=== PATIENT | male | born 1955 | race Two or more races ===

== ENCOUNTER 2024-04-21 14:25 | Emergency (ER) | payer MEDICARE ==
[2024-04-21 14:58] VITALS: O2SAT 98
[2024-04-21 15:13] LABS: BASOPHILS % (AUTO) 0.5 %; EOSINOPHILS # (AUTO) 0.1 10^3/uL (0.0-0.7); EOSINOPHILS % (AUTO) 0.7 %; HCT - HEMATOCRIT 40.3 % (42.0-52.0); HGB - HEMOGLOBIN 12.4 g/dL (14.0-18.0); LYMPHOCYTES # (AUTO) 2.5 10^3/uL (1.5-3.5); MEAN CORPUSCULAR HEMOGLOBIN 29.9 pg (27.0-31.0); MEAN CORPUSCULAR HGB CONC 30.8 g/dL (32.0-36.0); MEAN CORPUSCULAR VOLUME 97.1 fL (80.0-94.0); MEAN PLATELET VOLUME 10.2 fL (7.4-11.4); MONOCYTES # (AUTO) 0.6 10^3/uL (0.0-1.0); MONOCYTES % (AUTO) 6.7 %; NEUTROPHILS # (AUTO) 5.2 10^3/uL (1.5-6.6); NEUTROPHILS % (AUTO) 61.9 %; PLT - PLATELET COUNT 160 10^3/uL (130-450); RED BLOOD COUNT 4.15 10^6/uL (4.70-6.10); RED CELL DISTRIBUTION WIDTH 13.3 % (12.0-15.0); WHITE BLOOD COUNT 8.4 x10^3/uL (4.8-10.8)
[2024-04-21 15:27] LABS: ALBUMIN 4.7 g/dL (3.2-5.5); ALBUMIN/GLOBULIN RATIO 1.4 (1.0-2.2); BILIRUBIN,TOTAL 0.6 mg/dL (0.2-1.0); CALCIUM 9.9 mg/dL (8.5-10.3); POTASSIUM 4.6 mmol/L (3.5-4.5)
--- NOTE | 2024-04-21 15:45 | ED Physician Documentation ---
PD HPI ABD PAIN - Stated complaint Stated Complaint: ABD PX - Chief complaint Chief Complaint: Abd Pain - History obtained from History obtained from: Patient - Additional information Additional information: 68-year-old gentleman with diabetes, stage IV CKD with fistula in place although not dialyzed yet and history of gastroparesis. He and his whole family got sick with what they think was food poisoning 2 weeks ago marked by abdominal cramps and vomiting. (Not 21 weeks in contrast to the nurses notes). Since then he has had early satiety with bloating and nausea. He has had a remote cholec ystectomy. PD PAST MEDICAL HISTORY - Past Medical History Past Medical History: Yes Cardiovascular: Congestive heart failure, Hypertension, High cholesterol, Coronary artery disease Respiratory: Asthma, Sleep apnea, CPAP use Neuro: Alzhiemer's, TIA Endocrine/Autoimmune: Type 2 diabetes GI: Other : Benign prostate hypertrophy, Renal insuffiency HEENT: Chronic vision loss, Macular degeneration Psych: None Musculoskeletal: Osteoarthritis, Fibromyalgia, Rheumatoid arthritis Derm: None Other Past Medical History: gastroparesis - Past Surgical History Past Surgical History: Yes General: Cholecystectomy Ortho: Carpal Tunnel surgery Cardiovascular: Coronary stent, Cardiac catheterization HEENT: Cataracts - Present Medications Home Medications: Ambulatory Orders Medication Instructions Recorded Confirmed Azithromycin [Zithromax] 250 mg PO DAILY #4 tablet 12/29/23 Doxycycline Monohydrate 100 mg PO BID #20 cap 12/29/23 Metoclopramide [Reglan] 10 mg PO Q6H PRN #40 tablet 04/21/24 Ondansetron Odt [Zofran] 4 mg TL Q6H PRN #20 tablet 04/21/24 - Allergies Allergies/Adverse Reactions: Allergies Allergy/AdvReac Type Severity Reaction Status Date / Time Penicillins Allergy Anaphylaxis Verified 04/21/24 14:43 - Social History Does the pt smoke?: No Smoking Status: Former smoker Does the pt drink ETOH?: No Does the pt have substance abuse?: Yes Substance Use and Type: Marijuana - Immunizations Immunizations are current?: Yes - POLST Patient has POLST: No PD ED PE NORMAL - Vitals Vital signs reviewed: Yes - General General: Alert and oriented X 3, No acute distress - Abdomen Abdomen: Soft, Non tender, Other (No free fluid on bedside ultrasound) - Extremities Extremities: No edema, No calf tenderness / cord - Neuro Neuro: Alert and oriented X 3 Results - Vitals Vitals: Vital Signs - 24 hr 04/21/24 14:44 Temperature 36.5 C Heart Rate 58 L Respiratory 18 Rate Blood Pressure 144/40 H O2 Saturation 98 Oxygen O2 Source Room air - Labs Labs: Laboratory Tests 04/21/24 04/21/24 15:05 15:05 WBC 8.4 RBC 4.15 L Hgb 12.4 L Hct 40.3 L MCV 97.1 H MCH 29.9 MCHC 30.8 L RDW 13.3 Plt Count 160 MPV 10.2 Neut # (Auto) 5.2 Lymph # (Auto) 2.5 Wright # (Auto) 0.6 Eos # (Auto) 0.1 Baso # (Auto) 0.0 Absolute Nucleated RBC 0.00 Nucleated RBC % 0.0 Sodium 139 Potassium 4.6 H Chloride 106 Carbon Dioxide 27 Anion Gap 6.0 BUN 51 H Creatinine 4.0 H Estimated GFR (MDRD) 15 L Glucose 153 H Calcium 9.9 Total Bilirubin 0.6 AST 13 ALT 11 Alkaline Phosphatase 84 Total Protein 8.0 Albumin 4.7 Globulin 3.3 Albumin/Globulin Ratio 1.4 Lipase 66 - Rads (name of study) CT KUB- CAD, divertiula NAD Relevant Findings:: Final report received, EMP independent interpretation of test PD Medical Decision Making - ED course ED course: 68-year-old gentleman with chronic kidney disease and diabetes and known gastroparesis presents with diffuse abdominal pain and early satiety with un remarkable examination. Workup in the emergency department demonstrates a normal CBC save mild anemia and chronic kidney disease. CT without contrast done with incidental findings only. I suspect he is having an exacerbation of his gastroparesis and he was feeling better after Zofran and we will add Reglan. Departure - Departure Disposition: 01 Home, Self Care Clinical Impression: Abdominal pain Condition: Good Record reviewed to determine appropriate education?: Yes Instructions: ED Diabetic Gastroparesis Prescriptions: Metoclopramide [Reglan] 10 mg PO Q6H PRN #40 tablet PRN Reason: Nausea / Vomiting Ondansetron Odt [Zofran] 4 mg TL Q6H PRN #20 tablet PRN Reason: Nausea / Vomiting Comments: Workup today demonstrated your known kidney disease and incidental findings on the CAT scan including diverticulosis and coronary artery calcifications. The CAT scan did not show a reason for pain, but if your gastroparesis was acting up, that would not actually show up on the pictures. I am prescribing the medication for gastroparesis and nausea. Call your doctor to arrange a follow- up appointment, make the next available appointment. In the interim, return anytime if worse or if new symptoms develop. Forms: PCP List
[2024-04-21] MEDS: ONDANSETRON ODT 4 MG TABLET TL STA (15:51)
--- NOTE | 2024-04-21 16:55 | CT Report ---
PROCEDURE: Abdomen/Pelvis WO INDICATIONS: abd pain TECHNIQUE: A CT scan of the abdomen and pelvis was performed without the use of intravenous contrast. Images we re recorded and evaluated at appropriate window settings. Reformats: coronal and sagittal. For radiat ion dose reduction, the following was used: automated exposure control, adjustment of mA and/or kV ac cording to patient size. COMPARISON: None. FINDINGS: Image quality: Diagnostic. Lower chest: Severe coronary artery calcifications. Top normal heart size. Extreme lung bases are juventino ar. Liver: No contour-deforming mass. Gallbladder: Surgically absent Biliary tree: No intrahepatic or extrahepatic dilation, accounting for age. Spleen: No splenomegaly. Pancreas: No pancreatic ductal dilation. Adrenals: No adrenal nodule. Kidneys and ureters: No hydronephrosis. No contour-deforming mass. Stomach, bowel and peritoneum: No gastric or small bowel dilation. No abnormal wall thickening. No pa thologic free fluid. Mild diverticulosis without evidence of diverticulitis. The appendix is visualiz ed in its entirety. It has high density material throughout most of it. It is normal in caliber witho ut inflammatory change in the adjacent fat.. Lymph nodes: No central or retroperitoneal adenopathy. Vessels: No infrarenal aortic aneurysm. Reproductive organs: Unremarkable. Bladder: Bladder wall thickness is normal, accounting for underdistention. No calcified bladder stone s. Pelvic lymph nodes: No adenopathy by size criteria. Bones: No aggressive osseous abnormality. Other: No significant ventral or inguinal hernia. IMPRESSION: 1. No acute abdominal process noted. 2. Normal appendix. 3. No renal stones or ureteral stones or hydronephrosis. 4. Mild diverticulosis without evidence of diverticulitis. 5. Severe coronary artery calcifications. 6. Remote cholecystectomy. Reviewed by: Jero Lam MD on 04/21/2024 4:54 PM PDT Approved by: Jero Lam MD on 04/21/2024 4:54 PM PDT Station ID: [id number]
[2024-04-21 17:10] VITALS: BP 138/60
== END 2024-04-21 17:11 | disposition home or self-care (01) ==
LOC: ED 14:25
DX: R10.9 Unspecified abdominal pain (principal); E11.22 Type 2 diabetes mellitus with diabetic chronic kidney disease; I13.0 Hypertensive heart and chronic kidney disease with heart failure and stage 1 through stage 4 chronic kidney disease, or unspecified chronic kidney disease; N18.4 Chronic kidney disease, stage 4 (severe); I50.9 Heart failure, unspecified; Z87.891 Personal history of nicotine dependence
CPT/HCPCS: 36415; 74176; 80053; 83690; 85025; 99283; 99284; Q0162